=== PATIENT | female | born 1960 | race African-American/Black ===

== ENCOUNTER 2019-07-14 | Emergency (ER) | payer BC | END 2019-07-14 12:50 | disposition home or self-care (01) | DRG 554 | DX: M17.11 Unilateral primary osteoarthritis, right knee (principal); E11.9 Type 2 diabetes mellitus without complications; I10 Essential (primary) hypertension ==

== ENCOUNTER 2021-08-14 10:05 | Emergency (ER) | payer MEDICARE, MEDICAID ==
[~2021-08-14] VITALS: Ht 157.5 cm; Wt 90.0 kg
[~2021-08-14 10:05] MED LIST: CYCLOBENZAPRINE10 MG PO; LISINOPRIL10 MG PO; TRAMADOL HYDROC50 MG PO
[2021-08-14 11:28] VITALS: BP 156/73
[2021-08-14 11:31] VITALS: BP 132/79
[2021-08-14 12:33] LABS: HEMATOCRIT 42.6 % (37.0-47.0); HEMOGLOBIN 13.3 g/dl (12.0-16.0); IMMATURE GRANULOCYTES 0.2 % (0.0-5.0); MEAN CELL VOLUME 68.8 fL CALC (80.0-100.0); MEAN CORPUSCULAR HGB 21.5 pG CALC (26.0-32.0); MEAN CORPUSCULAR HGB CONC 31.2 g/dL CAL (32.0-36.0); NEUT# 5.73 thou/uL (2.00-7.15); RED BLOOD COUNT 6.19 mill/uL (4.20-5.60); RED CELL DISTRI WIDTH 18.5 % (11.5-15.5)
[2021-08-14 12:42] LABS: ALBUMIN 4.5 g/dL (3.2-5.0); BILIRUBIN, TOTAL 0.6 mg/dL (0.0-1.4); CREATININE 1.2 mg/dL (0.5-1.0); POTASSIUM 3.3 mmol/l (3.5-5.1); TOTAL PROTEIN 9.1 g/dL (6.3-8.2)
[2021-08-14] MEDS ORDERED: METRONIDAZOLE500 MG PO (14:03)
[2021-08-14] MEDS ORDERED: LEVOFLOXACIN250 M1 PO (14:03)
[2021-08-14 14:12] VITALS: BP 153/86
[2021-08-14 16:05] VITALS: BP 130/85
[2021-08-14 19:15] VITALS: BP 160/94
== END 2021-08-14 14:21 | disposition home or self-care (01) ==
LOC: ED 10:05
PROVIDERS: Family Medicine
DX: K11.21 Acute sialoadenitis (principal); E11.9 Type 2 diabetes mellitus without complications; I10 Essential (primary) hypertension
CPT/HCPCS: Q9967

== ENCOUNTER 2024-01-05 05:46 | Emergency (ER) | payer MEDICARE, MEDICAID ==
[2024-01-05] VITALS (7 sets, daily range): BP systolic 107–153; BP diastolic 80–94
[~2024-01-05] VITALS: Ht 160 cm; Wt 83.0 kg
[~2024-01-05 05:46] MED LIST changes: +LEVOFLOXACIN250 M1 PO; +METRONIDAZOLE500 MG PO
[2024-01-05] MEDS ORDERED: cloNIDine HCL 0.1 MG/TAB PO ONE (05:55)
[2024-01-05] MEDS ORDERED: GABAPENTIN 300 MG/CAP PO ONE (05:55)
[2024-01-05] MEDS ORDERED: METOPROLOL TARTRATE 5 MG/5 ML VIAL IV ONE (05:55)
[2024-01-05 06:14] LABS: BASO% 0.4 % (0-3); EOS% 1.7 % (0-8); HEMATOCRIT 44.6 % (37.0-47.0); HEMOGLOBIN 14.1 g/dl (12.0-16.0); IMMATURE GRANULOCYTES 0.2 % (0.0-5.0); LYMPH% 53.8 % (15-41); MEAN CELL VOLUME 67.2 fL CALC (80.0-100.0); MEAN CORPUSCULAR HGB 21.2 pG CALC (26.0-32.0); MEAN CORPUSCULAR HGB CONC 31.6 g/dL CAL (32.0-36.0); MONO% 4.9 % (2-13); NEUT# 3.65 thou/uL (2.00-7.15); RED BLOOD COUNT 6.64 mill/uL (4.20-5.60); RED CELL DISTRI WIDTH 18.2 % (11.5-15.5)
[2024-01-05 06:19] LABS: ALBUMIN 4.5 g/dL (3.2-5.0); ALKALINE PHOSPHATASE 112 u/l (38-126); ANION GAP 10 (6-22 (CALC)); BILIRUBIN, TOTAL 0.5 mg/dL (0.02-1.3); BUN 28 mg/dL (8-23); BUN/CREATININE RATIO 19 (12-20 (CALC)); CARBON DIOXIDE 31 mmol/l (22-30); CHLORIDE 103 mmol/l (95-108); CREATININE 1.5 mg/dL (0.5-1.0); ESTIMATED GFR 39 ML/MIN (>=90 (CALC)); POTASSIUM 3.1 mmol/l (3.5-5.1); SGOT/AST 33 u/l (9-36); SODIUM 141 mmol/l (137-146); TOTAL PROTEIN 8.6 g/dL (6.3-8.2)
[2024-01-05] MEDS ORDERED: TRULICITY3 MG/0.5 M (06:23)
[2024-01-05] MEDS ORDERED: JARDIANCE10 MG (06:23)
[2024-01-05] MEDS ORDERED: CLONIDINE HCL0.3 MG PO (06:24)
[2024-01-05] MEDS ORDERED: GABAPENTIN300 M2 (06:24)
[2024-01-05] MEDS ORDERED: BAYER ASPIRIN E81 MG PO (06:25)
[2024-01-05 06:26] LABS: PROTHROMBIN TIME 9.9 SECONDS (9.0-12.5)
[2024-01-05 06:28] LABS: D-DIMER 0.39 mg/L (0.19-0.60)
[2024-01-05 06:40] LABS: URINE BILIRUBIN - DIPSTICK Negative (NEGATIVE); URINE BLOOD DIPSTICK Trace-lysed (NEGATIVE); URINE GLUCOSE - DIPSTICK >=1000 mg/dL (NEGATIVE); URINE KETONE Negative (NEGATIVE); URINE LEUK ESTERASE Trace (NEGATIVE); URINE NITRITE - DIPSTICK Negative (Negative); URINE PH 5.5 (4.5-8.0); URINE PROTEIN - DIPSTICK 30 mg/dL (NEG-TRACE); URINE UROBILINOGEN - DIPSTICK 0.2 E.U./dL (0.2)
[2024-01-05 06:45] LABS: URINE COLOR Yellow
[2024-01-05 06:46] LABS: URINE BACTERIA FEW hpf; URINE MUCUS FEW hpf (NONE-FEW); URINE RBC 0-2 RBC/hpf (0-5); URINE SQUAMOUS EPITHELIAL CELL FEW EPI/hpf (0-FEW); URINE WBC 0-2 WBC/hpf (0-5)
[2024-01-05] MEDS ORDERED: POTASSIUM CHLORIDE 20 MEQ/TAB PO ONE (06:50)
[2024-01-05] MEDS ORDERED: POTASSIUM CHLO20 ME1 PO (06:58)
== END 2024-01-05 07:23 | disposition home or self-care (01) ==
LOC: ED 05:46
PROVIDERS: Family Medicine
DX: R00.2 Palpitations (principal); E87.6 Hypokalemia; T46.5X6A Underdosing of other antihypertensive drugs, initial encounter; T42.6X6A Underdosing of other antiepileptic and sedative-hypnotic drugs, initial encounter; I10 Essential (primary) hypertension; E11.9 Type 2 diabetes mellitus without complications; Z79.85 Long-term (current) use of injectable non-insulin antidiabetic drugs; Z79.84 Long term (current) use of oral hypoglycemic drugs

== ENCOUNTER 2024-02-29 10:52 | Emergency (ER) | payer MEDICARE, MEDICAID ==
[~2024-02-29] VITALS: Ht 160 cm; Wt 82.5 kg
[~2024-02-29 10:52] MED LIST changes: +BAYER ASPIRIN E81 MG PO; +CLONIDINE HCL0.3 MG PO; +GABAPENTIN300 M2; +JARDIANCE10 MG; +POTASSIUM CHLO20 ME1 PO; +TRULICITY3 MG/0.5 M
[2024-02-29 11:13] VITALS: BP 135/117
[2024-02-29 11:15] VITALS: BP 150/83
[2024-02-29 11:30] VITALS: BP 139/84
[2024-02-29 11:45] VITALS: BP 144/76
[2024-02-29] MEDS ORDERED: DEXAMETHASONE SOD. PHOSPHATE 10 MG/ML VIAL IM ONE (12:20)
[2024-02-29] MEDS ORDERED: KETOROLAC TROMETHAMINE 15 MG/ML SDV IM ONE (12:20)
[2024-02-29] MEDS ORDERED: TRAMADOL HYDROC50 M1 PO (12:44)
[2024-02-29] MEDS ORDERED: CYCLOBENZAPRINE10 MG PO (12:44)
[2024-02-29] MEDS ORDERED: IBUPAK600 MG PO (12:44)
[2024-02-29 13:19] VITALS: BP 144/76
== END 2024-02-29 13:26 | disposition home or self-care (01) ==
LOC: ED 10:52
DX: S39.012A Strain of muscle, fascia and tendon of lower back, initial encounter (principal); M54.42 Lumbago with sciatica, left side; M16.12 Unilateral primary osteoarthritis, left hip; I10 Essential (primary) hypertension; E11.9 Type 2 diabetes mellitus without complications; Z79.84 Long term (current) use of oral hypoglycemic drugs; X50.0XXA Overexertion from strenuous movement or load, initial encounter